=== PATIENT | female | born 1980 | race Caucasian/White ===

== ENCOUNTER → 2017-08-17 | Outpatient (CLI) | payer OTHER ==
[~2017-08-17] MED LIST: IOHEXOL 240 MG/ML 50ML VIAL. PO ONE; IOHEXOL 300 MG/ML 100ML VIAL. IV ONE; PANT20TA2 PO
--- NOTE | 2017-08-17 12:19 | KCIC ---
CT abdomen and pelvis with contrast Indication: Abdominal pain. Right-sided epigastric pain for one week, worse with eating.. . Technique: Intravenous contrast is given. No oral contrast as per request. Comparison:None available Exposure: One or more of the following individualized dose reduction techniques were utilized for this examination: 1. Automated exposure control 2. Adjustment of the mA and/or kV according to patient size 3. Use of iterative reconstruction technique. FINDINGS: Lower thorax: Lung bases are clear. Pneumoperitoneum:No gross pneumoperitoneum. Liver: Mildly hypodense compatible with mild fatty infiltration, with mild sparing. Mildly enlarged at 20 cm. Spleen: Enlarged, 15 cm. Small anterior splenule. Pancreas: Unremarkable Adrenals:No evidence of mass. Kidneys:Unremarkable Gallbladder: No calcified stone Aorta: Abdominal aorta is nonaneurysmal Lymph nodes: There are some mildly prominent mesenteric lymph nodes, measuring up to 8 mm short axis. No bulky lymph node enlargement. GI tract: No bowel obstruction. No paracolonic inflammation. Appendix:Visualized, appears within normal limits. Ascites: No gross ascites. Urinary bladder: Not opacified, but no apparent abnormality. No evidence of pelvic mass. Bones: No destructive process. IMPRESSION: 1. Mild hepatosplenomegaly. 2. Mild fatty infiltration of liver. 3. Borderline mesenteric lymph node enlargement, nonspecific. Electronically signed by: Ed Francisco MD (08/17/2017 12:16 PM) [id number]
== END | disposition home or self-care (01) ==
LOC: KCIC CT 09:16
PROVIDERS: ATTEND Family Medicine
DX: K76.0 Fatty (change of) liver, not elsewhere classified (principal); R16.2 Hepatomegaly with splenomegaly, not elsewhere classified
CPT/HCPCS: 74177; Q9966; Q9967

== ENCOUNTER → 2018-04-10 | Outpatient (CLI) | payer OTHER | END | disposition home or self-care (01) | LOC: US 13:53 | DX: E04.2 Nontoxic multinodular goiter (principal); E03.9 Hypothyroidism, unspecified | CPT/HCPCS: 76536 ==

== ENCOUNTER → 2018-04-22 | Outpatient (CLI) | payer OTHER ==
[~2018-04-22] MED LIST changes: -IOHEXOL 240 MG/ML 50ML VIAL. PO ONE; -IOHEXOL 300 MG/ML 100ML VIAL. IV ONE
--- NOTE | 2018-04-22 12:55 | KCIC ---
EXAM: Right elbow, 3 views. HISTORY: Pain and swelling. COMPARISON: None. FINDINGS: Frontal, lateral and oblique views of the right elbow are obtained. There is no fracture, dislocation or subluxation. There is no elbow effusion. There is mild soft tissue prominence overlying the olecranon. IMPRESSION: 1. No acute osseous finding. 2. Mild soft tissue prominence overlying the olecranon. This is not clearly within limits to suggest olecranon bursitis. Electronically signed by: Tonia Billy MD (04/22/2018 12:51 PM) [place] [id number]
== END | disposition home or self-care (01) ==
LOC: KCIC 11:36
PROVIDERS: ATTEND Family Medicine
DX: M25.521 Pain in right elbow (principal); M79.89 Other specified soft tissue disorders; E03.9 Hypothyroidism, unspecified
CPT/HCPCS: 73080

== ENCOUNTER → 2020-07-22 | Outpatient (CLI) | payer OTHER ==
--- NOTE | 2020-07-22 17:36 | KCIC ---
INDICATION: Reason: RIGHT HIP PAIN / Spl. Instructions: New onset of anterior joint pain, LROM. NKI. / History: COMPARISON: August 2017 IMPRESSION: Right hip and pelvis: 3 views obtained. No evidence of acute fracture or dislocation. There is not a significant amount of degenerative changes identified within the limits of plain film. Electronically signed by: Oscar Claros MD (07/22/2020 5:34 PM) [id number]
== END ==
LOC: KCIC 15:05
PROVIDERS: ATTEND Family Medicine
DX: M25.551 Pain in right hip (principal)
CPT/HCPCS: 73502